=== PATIENT | female | born 1965 | race Caucasian/White ===

== ENCOUNTER 2021-09-30 12:27 | Inpatient (IN) | payer OTHER ==
[~2021-09-30] VITALS: Ht 170.2 cm; Wt 68.0 kg
[2021-09-30 12:27] VITALS: BP 161/101
[2021-09-30] MEDS ORDERED: ALBUTEROL SULFATE/IPRATROPIU 3 ML SOL IH ONE ×2 (13:09→13:15)
--- NOTE | 2021-09-30 13:19 | NUR ---
RT at formerly [facility]
[2021-09-30] MEDS ORDERED: MAG SULF 2000 MG/WATER PREMIX 50 ML IV ONE (13:25)
[2021-09-30] MEDS ORDERED: AZITHROMYCIN 500 MG in DEXTROSE 5% 250 ML IV ONE (15:30)
--- NOTE | 2021-09-30 15:52 | NUR ---
55 Y/O FEMALE BIBA from home c/o shortness of breath, productive cough, weakness, +nausea x 2 days. Per EMS, pt on 2L home O2. SpO2 92% on 3L. Pt ambulates with walker. Oral temperature 99.2 PMH: COPD, asthma Meds: codeine, Albuterol A: LILIA worleyN
--- NOTE | 2021-09-30 15:57 | NUR ---
BLOOD WORK AND SHAHRZAD COLLECTED AND SENT TO LAB
[2021-09-30 16:15] LABS: BASOPHILS % (AUTO) 0.6 % (0.0-2.0); EOSINOPHILS % (AUTO) 0.4 % (0.0-4.0); HEMOGLOBIN 13.7 g/dL (12.0-16.0); LYMPHOCYTES # (AUTO) 0.6 K/uL (2.5-16.5); LYMPHOCYTES % (AUTO) 10.1 % (20.5-51.1); MEAN CORPUSCULAR HEMOGLOBIN 31 pg (27-31); MEAN CORPUSCULAR HGB CONC 33 g/dL (33-37); MEAN CORPUSCULAR VOLUME 93.6 fL (80-94); MONOCYTES # (AUTO) 0.4 K/uL (0.8-1.0); MONOCYTES % (AUTO) 7.3 % (1.7-9.3); NEUTROPHILS # (AUTO) 4.9 K/uL (1.8-7.7); NEUTROPHILS % (AUTO) 81.6 % (42.2-75.2); PLATELET COUNT (AUTO) 227 K/uL (140-450); RED BLOOD CELL COUNT(AUTO) 4.38 MIL/uL (4.20-5.40); RED CELL DISTRIBUTION WIDTH 17.9 % (11.6-13.7)
[2021-09-30 16:18] LABS: CARBON DIOXIDE 34.9 mmol/L (21-32); CREATININE 0.9 mg/dL (0.6-1.3); POTASSIUM 3.9 mmol/L (3.5-5.1)
[2021-09-30 16:34] LABS: ALBUMIN 4.7 g/dL (3.4-5.0); BILIRUBIN,DIRECT 0.1 mg/dL (0.0-0.3); TOTAL BILIRUBIN 0.8 mg/dL (0.0-1.0)
[2021-09-30] MEDS ORDERED: AZITHROMYCIN 500 MG INJ VIAL IV ONE (16:43)
--- NOTE | 2021-09-30 17:30 | NUR ---
PT SITTING IN W/C. ON 2L NASAL CANNULA.
--- NOTE | 2021-09-30 18:00 | NUR ---
PT TRANSFERRED TO BED 09
[2021-09-30] MEDS ORDERED: ARIP2TAB2 PO (18:55)
[2021-09-30] MEDS ORDERED: PRON INH (18:55)
[2021-09-30] MEDS ORDERED: METH-1550 PO (18:55)
[2021-09-30] MEDS ORDERED: FLUT1BLS3 IH (18:55)
[2021-09-30] MEDS ORDERED: SERT25TA PO (18:55)
--- NOTE | 2021-09-30 19:26 | NUR ---
Pt report given to ANDREA MELGOZA. Transfer of care at this time.
--- NOTE | 2021-09-30 19:38 | NUR ---
MIHAI CALLED FOR THE CONFIRMATION OF ADMISSION.
[2021-09-30] MEDS ORDERED: ACETAMINOPHEN 325 MG TAB PO PRN (19:55)
[2021-09-30] MEDS ORDERED: ZOLPIDEM 5 MG TAB PO PRN (19:55)
[2021-09-30] MEDS ORDERED: ONDANSETRON 4 MG/2 ML VIAL IVP PRN (19:55)
[2021-09-30] MEDS ORDERED: ALBUTEROL SULFATE/IPRATROPIU 3 ML SOL IH PRN (19:55)
[2021-09-30] MEDS ORDERED: LORazepam 1 MG TAB PO PRN (19:55)
[2021-09-30] MEDS ORDERED: HYDROcodone/APAP 5/325 MG 1 TAB TAB PO PRN (19:55)
--- NOTE | 2021-09-30 20:00 | NUR ---
PATIENT REFUSES TO PUT ON HOSPITAL GOWN, SHE PREFERS HER OWN CLOTHING.
--- NOTE | 2021-09-30 22:21 | NUR ---
[facility] [phone] CALLED REQUESTING UPDATE
[2021-09-30] MEDS: methylPREDNISolone SS 40 MG/ML VIAL IVP SCH (22:41)
--- NOTE | 2021-10-01 | NUR ---
Patient appears to be resting comfortably in bed. Vital Signs within normal limits. Respirations even and unlabored.
--- NOTE | 2021-10-01 04:00 | NUR ---
still asleep, no complained made.
[2021-10-01] MEDS: methylPREDNISolone SS 40 MG/ML VIAL IVP SCH (05:00)
--- NOTE | 2021-10-01 07:29 | NUR ---
report given to Mis Colvin, transfer of care at this time
--- NOTE | 2021-10-01 08:00 | NUR ---
RECEIVED PT IN [facility] AOX4. 3L NC SATURATION 91%. NO ACUTE DISTRESS NOTED. SAFETY MAINTAINED
[2021-10-01] MEDS ORDERED: SERTRALINE 50 MG TAB PO SCH (09:00)
[2021-10-01] MEDS ORDERED: METHADONE 10 MG TAB PO SCH (09:00)
[2021-10-01] MEDS ORDERED: DOCUSATE SODIUM 100 MG GELCAP PO SCH (09:00)
[2021-10-01] MEDS ORDERED: AZITHROMYCIN 250 MG TAB PO SCH (09:00)
--- NOTE | 2021-10-01 09:19 | NUR ---
PATIENT HAS BEEN SCREENED AND CATEGORIZED MODERATE NUTRITION RISK. PATIENT WILL BE SEEN WITHIN 3-5 DAYS OF ADMISSION. 10/03/21-10/05/[address]
--- NOTE | 2021-10-01 10:13 | NUR ---
PT REQUESTING TO LEAVE AMA. PAGED DR ROBLES TO MAKE AWARE
[2021-10-01 11:05] VITALS: BP 170/58
--- NOTE | 2021-10-01 12:10 | NUR ---
spoke to dr munoz made aware pt requesting to leave ama. states he will place dc orders into the computer. pt made aware.
[2021-10-01] MEDS ORDERED: METH4TAB3 PO (12:23)
[2021-10-01] MEDS ORDERED: AZIT250T3 PO (12:24)
--- NOTE | 2021-10-01 14:00 | NUR ---
(LATE ENTRY)PT DC HOME PER MD ORDERS. PT DC WITH BROTHER FOR SAFE DC. IV REMOVED NO ACTIVE BLEEDING NOTED. NAD. STABLE ON DC.
== END 2021-10-01 14:00 | disposition left against medical advice (07) | DRG 140 ==
LOC: MED 12:27 → MTU 19:55
PROVIDERS: ADMIT Internal Medicine; ATTEND Internal Medicine
DX: J44.1 Chronic obstructive pulmonary disease with (acute) exacerbation (principal); J96.01 Acute respiratory failure with hypoxia; I10 Essential (primary) hypertension; Z20.822 Contact with and (suspected) exposure to COVID-19; Z53.29 Procedure and treatment not carried out because of patient's decision for other reasons; Z88.0 Allergy status to penicillin; Z88.2 Allergy status to sulfonamides; Z99.81 Dependence on supplemental oxygen; E87.1 Hypo-osmolality and hyponatremia; E87.8 Other disorders of electrolyte and fluid balance, not elsewhere classified
CPT/HCPCS: 36415; 36600; 71045; 80048; 80076; 82803; 83690; 83880; 84484; 85025; 93005; 94640; 96365; 96367; 99285; J0456; J1644; J2920; J3475